=== PATIENT | female | born 1965 | race Hispanic/Latino ===

== ENCOUNTER 2016-12-22 11:09 | Outpatient (CLI) | payer BC, MEDICARE ==
--- NOTE | 2016-12-22 13:04 | Mammography Report ---
Bilateral mammogram: No previous studies available. CAD study utilized. Findings: Predominance of adipose tissue bilaterally. Focal dense ill-defined asymmetry/architectural distortion outer anterior right breast. No microcalcification. Normal axilla. Impression: Asymmetry/focal architectural distortion right breast. Comparison with previous studies is recommended. If previous studies are not available spot mag and if necessary sonographic examination advised. BI-RADS CATEGORY: 0 = Needs additional imaging evaluation ACR BI-RADS MAMMOGRAPHIC CODES: 0 = Needs additional imaging evaluation; 1 = Negative; 2 = Benign; 3 = Probably benign; 4 = Suspicious; 5 = Malignant; 6 = Known biopsy-proven malignancy COMMENT: 1. Dense breast tissue, i.e., adenosis, fibrocystic changes, etc., may obscure an underlying neoplasm. 2. Approximately 10% of cancers are not detected with mammography. 3. A negative mammography report should not delay biopsy if a clinically suspicious mass is present. COMMENT: Patient follow-up letters are generated in [employer].
== END 2016-12-22 11:10 | disposition home or self-care (01) ==
LOC: SPVWC 11:09
PROVIDERS: ATTEND Surgery
DX: Z12.31 Encounter for screening mammogram for malignant neoplasm of breast (principal); J18.9 Pneumonia, unspecified organism
CPT/HCPCS: 77067; G0202

== ENCOUNTER 2018-02-24 09:24 | Outpatient (CLI) | payer BC, MEDICARE ==
--- NOTE | 2018-02-25 11:22 | Mammography Report ---
BILATERAL DIGITAL SCREENING MAMMOGRAM with CAD: 02/24/18 09:24:00 CLINICAL: Routine screening. COMPARISON:12/22/16 FINDINGS: The breasts are heterogeneously dense, which may obscure small masses. No mass, architectural distortion or suspicious calcifications. IMPRESSION: No mammographic evidence of malignancy. BI-RADS CATEGORY: 1 - - Negative RECOMMENDATION: Routine mammographic screening in one year. COMMENT: Patient follow-up letters are generated by our [employer] application.
== END 2018-02-24 09:25 | disposition home or self-care (01) ==
LOC: SPVWC 09:24
PROVIDERS: ATTEND Surgery
DX: Z12.31 Encounter for screening mammogram for malignant neoplasm of breast (principal); E78.00 Pure hypercholesterolemia, unspecified; J45.909 Unspecified asthma, uncomplicated; K21.9 Gastro-esophageal reflux disease without esophagitis; I73.9 Peripheral vascular disease, unspecified; M19.90 Unspecified osteoarthritis, unspecified site; Z90.710 Acquired absence of both cervix and uterus; Z88.0 Allergy status to penicillin; Z91.040 Latex allergy status; Z88.1 Allergy status to other antibiotic agents; Z88.5 Allergy status to narcotic agent; Z91.048 Other nonmedicinal substance allergy status; Z90.49 Acquired absence of other specified parts of digestive tract
CPT/HCPCS: 77067